=== PATIENT | female | born 1995 | race Caucasian/White ===

== ENCOUNTER 2019-03-12 10:27 | Emergency (ER) | payer BC ==
--- NOTE | 2019-03-12 17:59 | EDM.PDOCBH ---
ED HPI GENERAL MEDICAL PROBLEM - General Chief Complaint: Behavioral/Psych Stated Complaint: Psych Time Seen by Provider: 03/12/19 12:18 Source of Information: Reports: Patient, Family, RN History Limitations: Reports: No Limitations - History of Present Illness INITIAL COMMENTS - FREE TEXT/NARRATIVE: 24 yr female presents with feeling like she is outside of her body, feels like she is naked and people are laughing at her. She was at work when this started. She called her dad and presented to the ER. She does have hx of anxiety and did take the Lorazapam, takes this infrequently. She does have visits with Dr Pantoja, psychiatry per telehealth. Last appointment was 03-01. States she does have another appointment in 2 weeks. Will get labs today and consult with psychiatry. - Related Data Allergies Allergy/AdvReac Type Severity Reaction Status Date / Time clindamycin Allergy Stomach Verified 03/12/19 12:05 Ache Home Meds: Home Meds LORazepam 0.5 mg PO BID PRN 03/12/19 [History] Metoprolol Succinate 25 mg PO DAILY 03/12/19 [History] Venlafaxine HCl [Venlafaxine ER] 75 mg PO DAILY 03/12/19 [History] Venlafaxine HCl [Venlafaxine ER] 150 mg PO DAILY 03/12/19 [History] Past Medical History Cardiovascular History: Reports: Arrhythmia, Other (See Below) Other Cardiovascular History: tachycardic rhythm Psychiatric History: Reports: Anxiety, Depression - Past Surgical History Cardiovascular Surgical History: Reports: None ED ROS GENERAL - Review of Systems Review Of Systems: See Below Constitutional: Reports: Decreased Appetite HEENT: Reports: Other (blurred vision) Respiratory: Reports: No Symptoms Cardiovascular: Reports: No Symptoms GI/Abdominal: Reports: Decreased Appetite. Denies: Constipation, Diarrhea : Reports: No Symptoms Musculoskeletal: Reports: No Symptoms Skin: Reports: No Symptoms Neurological: Denies: Trouble Speaking, Difficulty Walking, Change in Speech Psychiatric: Reports: Anxiety. Denies: Hallucinations, Homicidal Ideation, Suicidal Ideation ED EXAM, BEHAVIORAL HEALTH - Physical Exam Exam: See Below Exam Limited By: No Limitations General Appearance: Alert, No Apparent Distress, Anxious Ears: Hearing Grossly Normal Nose: Normal Inspection Throat/Mouth: Normal Voice, No Airway Compromise Head: Atraumatic, Normocephalic Neck: Normal Inspection, Supple, Non-Tender, Full Range of Motion Respiratory/Chest: No Respiratory Distress, Lungs Clear, Normal Breath Sounds Cardiovascular: Regular Rate, Rhythm, No Edema, No Murmur GI/Abdominal: Soft, Non-Tender Back Exam: Normal Inspection, Full Range of Motion Extremities: Normal Inspection, Normal Range of Motion, Non-Tender, No Pedal Edema Neurological: Alert Psychiatric: Alert, Flat Affect, Other (anxious). No: Suicidal Thoughts Skin Exam: Warm, Dry, Normal color COURSE, BEHAVIORAL HEALTH COMP - Course Vital Signs: Last Vital Signs Temp 97.9 F 03/12/19 12:02 Pulse 72 03/12/19 12:02 Resp 16 03/12/19 12:02 BP 122/68 03/12/19 12:02 Pulse Ox 100 03/12/19 12:02 Orders, Labs, Meds: Active Orders 24 hr Category Date Time Status CULTURE URINE [RM] Stat Lab 03/12/19 12:43 Received Laboratory Tests 03/12/19 03/12/19 03/12/19 Range/Units 12:43 12:43 12:44 WBC 7.4 (4.0-11.0) K/uL RBC 4.21 (3.80-5.80) M/uL Hgb 13.1 (11.5-16.5) g/dL Hct 38.8 (37.0-47.0) % MCV 92 (76-96) fL MCH 31.1 (27.0-32.0) pg MCHC 33.8 (31.0-35.0) g/dL RDW 12.1 (11.0-16.0) % Plt Count 265 (150-500) K/uL MPV 8.9 (6.0-10.0) fL Neut % (Auto) 61.7 (45.0-70.0) % Lymph % (Auto) 29.1 (20.0-40.0) % [place] % (Auto) 6.7 (3.0-10.0) % Eos % (Auto) 2.0 (1.0-5.0) % Baso % (Auto) 0.5 (0.0-0.5) % Neut # (Auto) 4.57 (2.00-7.50) K/uL Lymph # (Auto) 2.16 (1.50-4.00) K/uL [place] # (Auto) 0.50 (0.20-0.80) K/uL Eos # (Auto) 0.15 (0.04-0.40) K/uL Baso # (Auto) 0.04 (0.02-0.10) K/uL Sodium (136-145) mmol/L Potassium (3.5-5.1) mmol/L Chloride (98-107) mmol/L Carbon Dioxide (21.0-32.0) mmol/L Anion Gap (5.0-15.0) mmol/L BUN (8-26) mg/dL Creatinine (0.55-1.02) mg/dL Est Cr Clr Drug Dosing Estimated GFR (MDRD) (>60) MLS/MIN BUN/Creatinine Ratio (6-25) Glucose (74-100) mg/dL Calcium (8.5-10.1) mg/dL Total Bilirubin (0.0-1.0) mg/dL AST (15-37) U/L ALT (12-78) U/L Alkaline Phosphatase (46-116) U/L Total Protein (6.4-8.2) g/dL Albumin (3.4-5.0) g/dL Globulin (2.2-4.2) g/dL Albumin/Globulin Ratio (0.8-2.0) TSH, Ultra Sensitive (0.358-3.740) uIU/mL Urine Color Yellow Urine Appearance Clear (CLEAR) Urine pH 7.5 (5.0-8.0) Ur Specific [place] 1.020 (1.003-1.030) Urine Protein 100 H (NEGATIVE) mg/dL Urine Glucose (UA) Negative (NEGATIVE) mg/dL Urine Ketones Negative (NEGATIVE) mg/dL Urine Occult Blood Negative (NEGATIVE) Urine Nitrite Negative (NEGATIVE) Urine Bilirubin Negative (NEGATIVE) Urine Urobilinogen 0.2 (0.2-1.0) E.U./dL Ur Leukocyte Esterase Small H (NEGATIVE) Urine RBC Not seen /HPF Urine WBC 0-5 H /HPF Urine Bacteria Occasional /HPF Urine Opiates Screen Negative (NEGATIVE) Ur Oxycodone Screen Negative (NEGATIVE) Urine Methadone Screen Negative (NEGATIVE) Ur Barbiturates Screen Negative (NEGATIVE) Ur Tricyclics Screen Negative (NEGATIVE) Ur Phencyclidine Scrn Negative (NEGATIVE) Ur Amphetamine Screen Negative (NEGATIVE) U Methamphetamines Scrn Negative (NEGATIVE) Urine MDMA Screen Negative (NEGATIVE) U Benzodiazepines Scrn Positive H (NEGATIVE) U Cocaine Metab Screen Negative (NEGATIVE) U Marijuana (THC) Screen Positive H (NEGATIVE) Ethyl Alcohol (0.0-0.0) mg/dL 03/12/19 03/12/19 Range/Units 12:44 12:44 WBC (4.0-11.0) K/uL RBC (3.80-5.80) M/uL Hgb (11.5-16.5) g/dL Hct (37.0-47.0) % MCV (76-96) fL MCH (27.0-32.0) pg MCHC (31.0-35.0) g/dL RDW (11.0-16.0) % Plt Count (150-500) K/uL MPV (6.0-10.0) fL Neut % (Auto) (45.0-70.0) % Lymph % (Auto) (20.0-40.0) % [place] % (Auto) (3.0-10.0) % Eos % (Auto) (1.0-5.0) % Baso % (Auto) (0.0-0.5) % Neut # (Auto) (2.00-7.50) K/uL Lymph # (Auto) (1.50-4.00) K/uL [place] # (Auto) (0.20-0.80) K/uL Eos # (Auto) (0.04-0.40) K/uL Baso # (Auto) (0.02-0.10) K/uL Sodium 142 (136-145) mmol/L Potassium 3.9 (3.5-5.1) mmol/L Chloride 104 (98-107) mmol/L Carbon Dioxide 29.4 (21.0-32.0) mmol/L Anion Gap 12.5 (5.0-15.0) mmol/L BUN 22 D (8-26) mg/dL Creatinine 0.73 (0.55-1.02) mg/dL Est Cr Clr Drug Dosing TNP Estimated GFR (MDRD) > 60 (>60) MLS/MIN BUN/Creatinine Ratio 30.1 H (6-25) Glucose 86 (74-100) mg/dL Calcium 8.5 (8.5-10.1) mg/dL Total Bilirubin 0.5 (0.0-1.0) mg/dL AST 25 (15-37) U/L ALT 31 (12-78) U/L Alkaline Phosphatase 74 (46-116) U/L Total Protein 7.3 (6.4-8.2) g/dL Albumin 4.1 (3.4-5.0) g/dL Globulin 3.2 (2.2-4.2) g/dL Albumin/Globulin Ratio 1.3 (0.8-2.0) TSH, Ultra Sensitive 2.532 D (0.358-3.740) uIU/mL Urine Color Urine Appearance (CLEAR) Urine pH (5.0-8.0) Ur Specific [place] (1.003-1.030) Urine Protein (NEGATIVE) mg/dL Urine Glucose (UA) (NEGATIVE) mg/dL Urine Ketones (NEGATIVE) mg/dL Urine Occult Blood (NEGATIVE) Urine Nitrite (NEGATIVE) Urine Bilirubin (NEGATIVE) Urine Urobilinogen (0.2-1.0) E.U./dL Ur Leukocyte Esterase (NEGATIVE) Urine RBC /HPF Urine WBC /HPF Urine Bacteria /HPF Urine Opiates Screen (NEGATIVE) Ur Oxycodone Screen (NEGATIVE) Urine Methadone Screen (NEGATIVE) Ur Barbiturates Screen (NEGATIVE) Ur Tricyclics Screen (NEGATIVE) Ur Phencyclidine Scrn (NEGATIVE) Ur Amphetamine Screen (NEGATIVE) U Methamphetamines Scrn (NEGATIVE) Urine MDMA Screen (NEGATIVE) U Benzodiazepines Scrn (NEGATIVE) U Cocaine Metab Screen (NEGATIVE) U Marijuana (THC) Screen (NEGATIVE) Ethyl Alcohol 0.0 (0.0-0.0) mg/dL Re-Assessment/Re-Exam: Labs obtained: Consult with psychiatry, Dr Paz, reviewed labs. Positive THC and positive benzodiazepine. Dr Paz states he won't prescribe Ativan if pt is taking THC, states pt will need to decide on on or the other for her use. Reviewed this with pt. Dr Paz states pt can be discharge to home and symptoms should resolve on own without any treatment. Discussed labs with pt, reviewed Dr Paz recommendations. Pt would like to go home, her Dad is in agreement with this plan and is supportive for the pt. Discussed starting counseling again and pt in agreement with this, and will go get this scheduled. She will f/u with psychiatry as scheduled in 2 weeks. Pt has resource/crisis numbers to call if needed. RTC if symptoms increase or worsen. Departure - Departure Time of Disposition: 14:16 Disposition: Home, Self-Care 01 Condition: Good Clinical Impression: Anxiety - Discharge Information *PRESCRIPTION DRUG MONITORING PROGRAM REVIEWED*: Not Applicable *COPY OF PRESCRIPTION DRUG MONITORING REPORT IN PATIENT JESSIKA: Not Applicable Referrals: PCP,None [Primary Care Provider] - Forms: ED Department Discharge Additional Instructions: Make an appointment with Behavioral Health. Keep you appointment with Dt. Paz in 2 weeks. Take work off until Tuesday. Crisis phone [phone] - My Orders Last 24 Hours: My Active Orders 03/12/19 12:43 CULTURE URINE [RM] Stat - Assessment/Plan Last 24 Hours: My Active Orders 03/12/19 12:43 CULTURE URINE [RM] Stat Plan: Discussed starting counseling again and pt in agreement with this, and will go get this scheduled. She will f/u with psychiatry as scheduled in 2 weeks. Pt has resource/crisis numbers to call if needed. RTC if symptoms increase or worsen.
== END 2019-03-12 14:21 | disposition home or self-care (01) ==
LOC: LB.ED 10:27
DX: F41.9 Anxiety disorder, unspecified (principal); F32.9 Major depressive disorder, single episode, unspecified; Z79.899 Other long term (current) drug therapy; Z88.1 Allergy status to other antibiotic agents
CPT/HCPCS: 36415; 80053; 80307; 81001; 84443; 85025; 87086; 99283; G0480